=== PATIENT | male | born 1945 | race African-American/Black ===

== ENCOUNTER 2022-08-15 11:33 | Emergency (ER) | payer OTHER ==
[~2022-08-15] VITALS: Ht 190.5 cm; Wt 113.0 kg
[2022-08-15] MEDS ORDERED: cloNIDine HCL 0.1 MG TAB PO ONE (12:30)
[2022-08-15 13:09] LABS: Basophils # (auto) 0.1 10 ^3/uL (0-0.2); Basophils % (auto) 0.9 % (0.0-2.0); Eosinophils # (auto) 0.1 10 ^3/uL (0-0.8); Eosinophils % (auto) 2.3 % (0.0-7.0); Hemoglobin 16.3 g/dL (13.5-17.5); Lymphocytes % (auto) 17.2 % (10.0-50.0); Mean Corpuscular Hemoglobin 26.9 pg (28.0-32.0); Mean Corpuscular Hgb Conc. 32.5 g/dL (32.0-36.0); Mean Corpuscular Volume 82.7 fL (80.0-100.0); Monocytes # (auto) 0.7 10 ^3/uL (0-1.3); Monocytes % (auto) 11.7 % (0.0-12.0); Neutrophils # (auto) 4.1 10 ^3/uL (1.6-8.6); Neutrophils % (auto) 67.9 % (37.0-80.0); Nucleated Red Blood Cells % 0.3 %; Red Blood Cells 6.04 10^6/uL (4.5-5.90); Red Cell Distribution Width 14.8 % (11.8-14.3)
[2022-08-15 13:12] LABS: Albumin 3.8 g/dL (3.4-5.0); Calcium 9.3 mg/dL (8.5-10.1)
[2022-08-15 13:16] LABS: BUN/Creatinine Ratio 12.3; Bilirubin, Total 0.4 mg/dL (0.2-1.0); Total Protein 7.7 g/dL (6.4-8.2)
[2022-08-15] MEDS ORDERED: LOSARTAN POTASSIUM 50 MG TAB PO ONE (14:15)
[2022-08-15] MEDS ORDERED: OLME40TA26 PO (14:53)
[2022-08-15 16:04] VITALS: BP 157/91
== END 2022-08-15 16:05 | disposition home or self-care (01) ==
LOC: ER 11:33
DX: R04.0 Epistaxis (principal); I10 Essential (primary) hypertension; J44.9 Chronic obstructive pulmonary disease, unspecified; Z79.899 Other long term (current) drug therapy
CPT/HCPCS: 30901; 36415; 80053; 84484; 85025; 93005

== ENCOUNTER 2023-07-05 17:45 | Inpatient (IN) | payer MEDICARE, OTHER ==
[~2023-07-05] VITALS: Ht 188 cm; Wt 116.1 kg
[~2023-07-05 17:45] MED LIST: OLME40TA78 PO
[2023-07-05 18:52] LABS: Alanine Aminotransferase 17 U/L (7-40); Albumin 4.3 g/dL (3.2-4.8); Alkaline Phosphatase 77 U/L (46-116); Anion Gap 6 (5-15); Aspartate Aminotransferase 12 U/L (13-40); BUN/Creatinine Ratio 11.3 (10.0-20.0); Basophils # (auto) 0 10 ^3/uL (0-0.2); Basophils % (auto) 0.5 % (0.0-2.0); Bilirubin, Total 0.4 mg/dL (0.2-1.0); Blood Urea Nitrogen 12 mg/dL (9-23); Calcium 9.3 mg/dL (8.7-10.4); Carbon Dioxide 28 mmol/L (20-30); Chloride 102 mmol/L (98-107); Eosinophils # (auto) 0.1 10 ^3/uL (0-0.8); Eosinophils % (auto) 1.2 % (0.0-7.0); Glucose 144 mg/dL (74-106); Hematocrit 43.9 % (41.0-53.0); Hemoglobin 14.4 g/dL (13.5-17.5); Lymphocytes # (auto) 0.8 10 ^3/uL (0.4-5.4); Lymphocytes % (auto) 13.4 % (10.0-50.0); Mean Corpuscular Hgb Conc. 32.9 g/dL (32.0-36.0); Mean Corpuscular Volume 82.1 fL (80.0-100.0); Monocytes # (auto) 0.5 10 ^3/uL (0-1.3); Monocytes % (auto) 7.6 % (0.0-12.0); Neutrophils # (auto) 4.8 10 ^3/uL (1.6-8.6); Neutrophils % (auto) 77.3 % (37.0-80.0); Nucleated Red Blood Cells % 0.1 %; Potassium 3.9 mmol/L (3.5-5.1); Red Blood Cells 5.35 10^6/uL (4.5-5.90); Red Cell Distribution Width 14.5 % (11.8-14.3); Sodium 136 mmol/L (136-145); Total Protein 7.1 g/dL (5.7-8.2); White Blood Cell 6.2 10^3/uL (4.4-10.8)
[2023-07-05 19:51] LABS: INR 1.02 (0.9-1.15); Partial Thromboplastin Time 30.3 SEC (24.5-34.5); Prothrombin Time 10.7 sec (9.3-11.8)
[2023-07-05] MEDS ORDERED: NITROGLYCERIN 0.4 MG SL TAB SL PRN (21:30)
[2023-07-05] MEDS ORDERED: ONDANSETRON HCL 4 MG/2 ML VIAL IV PRN (21:30)
[2023-07-05] MEDS ORDERED: hydrALAZINE HCL 20 MG/ML VL IV PRN (21:30)
[2023-07-05] MEDS ORDERED: MORPHINE SULFATE INJ 2 MG/ml SYRG IV PRN (21:30)
[2023-07-05] MEDS ORDERED: PANTOPRAZOLE 80 MG in SODIUM CHL 0.9% 100 ML IV ONE (21:30)
[2023-07-05] MEDS: PANTOPRAZOLE 40mg/50ML NS AE 50 ML IV SCH ×2 (22:36→23:06)
[2023-07-05] MEDS: SODIUM CHLORIDE 0.9% 1,000 ML IV SCH (23:07)
[2023-07-05 23:50] VITALS: PULSE 86; RESP 22; O2SAT 95
[2023-07-06 05:17] LABS: Basophils # (auto) 0 10 ^3/uL (0-0.2); Basophils % (auto) 0.5 % (0.0-2.0); Eosinophils # (auto) 0.1 10 ^3/uL (0-0.8); Eosinophils % (auto) 1.3 % (0.0-7.0); Hematocrit 38.6 % (41.0-53.0); Hemoglobin 12.8 g/dL (13.5-17.5); Lymphocytes # (auto) 1.2 10 ^3/uL (0.4-5.4); Lymphocytes % (auto) 17.9 % (10.0-50.0); Mean Corpuscular Hemoglobin 27.1 pg (28.0-32.0); Mean Corpuscular Hgb Conc. 33.1 g/dL (32.0-36.0); Mean Corpuscular Volume 81.8 fL (80.0-100.0); Monocytes # (auto) 0.6 10 ^3/uL (0-1.3); Monocytes % (auto) 8.5 % (0.0-12.0); Neutrophils # (auto) 4.8 10 ^3/uL (1.6-8.6); Neutrophils % (auto) 71.8 % (37.0-80.0); Red Blood Cells 4.72 10^6/uL (4.5-5.90); Red Cell Distribution Width 14.6 % (11.8-14.3); White Blood Cell 6.6 10^3/uL (4.4-10.8)
[2023-07-06] MEDS: PANTOPRAZOLE 40mg/50ML NS AE 50 ML IV SCH ×4 (07:38→22:09)
[2023-07-06 07:49] VITALS: PULSE 86; RESP 20
[2023-07-06 11:35] VITALS: PULSE 90; RESP 18; O2SAT 94
[2023-07-06] MEDS: SODIUM CHLORIDE 0.9% 1,000 ML IV SCH (11:50)
[2023-07-06 14:17] LABS: Urine Bacteria NONE SEEN /hpf (None Seen); Urine Blood Negative /uL (Negative); Urine Clarity Clear (Clear); Urine Color Yellow (Yellow); Urine Protein, UAD Negative (Negative); Urine Specific Gravity 1.022 (1.001-1.035); Urine Urobilinogen Normal (Negative); Urine WBC 1 /hpf (0 - 3); Urine pH 6.5 (5.0-8.0)
[2023-07-06 15:10] VITALS: BP 134/86; PULSE 98; RESP 17; TEMP 98.6; O2SAT 94
[2023-07-06 16:39] VITALS: BP 130/81; PULSE 90; RESP 18; TEMP 98.7; O2SAT 96
[2023-07-06] MEDS ORDERED: HYDR12.59 PO (16:47)
[2023-07-06 20:00] VITALS: BP 116/76; PULSE 119; PULSE 97; RESP 18; O2SAT 94
[2023-07-06] MEDS: MORPHINE SULFATE INJ 2 MG/ml SYRG IV PRN (20:27)
[2023-07-06 22:00] VITALS: BP 126/78; PULSE 84; RESP 16; TEMP 98.2; O2SAT 94
[2023-07-07] MEDS: SODIUM CHLORIDE 0.9% 1,000 ML IV SCH (00:10)
[2023-07-07] MEDS: PANTOPRAZOLE 40mg/50ML NS AE 50 ML IV SCH ×2 (03:20→08:34)
[2023-07-07 06:12] LABS: Chloride 105 mmol/L (98-107); Potassium 4.1 mmol/L (3.5-5.1); Sodium 137 mmol/L (136-145)
[2023-07-07 06:13] LABS: Anion Gap 2 (5-15); Calcium 8.5 mg/dL (8.7-10.4); Carbon Dioxide 30 mmol/L (20-30)
[2023-07-07 06:14] LABS: Basophils # (auto) 0 10 ^3/uL (0-0.2); Basophils % (auto) 0.4 % (0.0-2.0); Eosinophils # (auto) 0.1 10 ^3/uL (0-0.8); Eosinophils % (auto) 1.8 % (0.0-7.0); Hematocrit 33.2 % (41.0-53.0); Lymphocytes # (auto) 1.3 10 ^3/uL (0.4-5.4); Lymphocytes % (auto) 20.1 % (10.0-50.0); Mean Corpuscular Hemoglobin 27.2 pg (28.0-32.0); Mean Corpuscular Hgb Conc. 33.1 g/dL (32.0-36.0); Mean Corpuscular Volume 82.1 fL (80.0-100.0); Monocytes # (auto) 0.6 10 ^3/uL (0-1.3); Monocytes % (auto) 9.1 % (0.0-12.0); Neutrophils # (auto) 4.4 10 ^3/uL (1.6-8.6); Neutrophils % (auto) 68.6 % (37.0-80.0); Red Blood Cells 4.04 10^6/uL (4.5-5.90); Red Cell Distribution Width 14.6 % (11.8-14.3); White Blood Cell 6.4 10^3/uL (4.4-10.8)
[2023-07-07 06:18] LABS: BUN/Creatinine Ratio 7.1 (10.0-20.0); Blood Urea Nitrogen 7 mg/dL (9-23); Glucose 116 mg/dL (74-106)
[2023-07-07 08:00] VITALS: BP 113/74; PULSE 80; PULSE 86; PULSE 87; RESP 18; O2SAT 98
[2023-07-07 10:09] VITALS: BP 113/74; PULSE 87; RESP 18; TEMP 98.9; O2SAT 94
[2023-07-07 12:30] VITALS: BP 121/75; PULSE 84; RESP 18; TEMP 98.9; O2SAT 94
[2023-07-07] MEDS: MORPHINE SULFATE INJ 2 MG/ml SYRG IV PRN (14:53)
[2023-07-07 17:07] VITALS: BP 142/82; PULSE 74; RESP 18; TEMP 98; O2SAT 93
[2023-07-07 20:00] VITALS: BP 141/84; PULSE 77; PULSE 87; PULSE 93; RESP 18; TEMP 98; O2SAT 96
[2023-07-07 22:00] VITALS: BP 141/84; PULSE 87; RESP 18; TEMP 98; O2SAT 96
[2023-07-07] MEDS: PANTOPRAZOLE 40 MG/10 ML VIAL INJ IV SCH (22:28)
[2023-07-07] MEDS ORDERED: POLYETHYLENE GLYCOL 17 GM PWDR PO ONE (22:30)
[2023-07-08] VITALS (7 sets, daily range): BP systolic 117–135; BP diastolic 68–85; PULSE 74–95; RESP 18–19; TEMP 97.8–98.4; O2SAT 92–96
[2023-07-08 06:53] LABS: Basophils # (auto) 0 10 ^3/uL (0-0.2); Lymphocytes # (auto) 1.3 10 ^3/uL (0.4-5.4); Mean Corpuscular Hemoglobin 26.8 pg (28.0-32.0)
[2023-07-08 06:56] LABS: Basophils % (auto) 0.6 % (0.0-2.0); Eosinophils # (auto) 0.2 10 ^3/uL (0-0.8); Eosinophils % (auto) 2.4 % (0.0-7.0); Hematocrit 33.7 % (41.0-53.0); Lymphocytes % (auto) 20.7 % (10.0-50.0); Mean Corpuscular Hgb Conc. 32.6 g/dL (32.0-36.0); Mean Corpuscular Volume 82.3 fL (80.0-100.0); Monocytes # (auto) 0.7 10 ^3/uL (0-1.3); Monocytes % (auto) 10.2 % (0.0-12.0); Neutrophils # (auto) 4.2 10 ^3/uL (1.6-8.6); Neutrophils % (auto) 66.1 % (37.0-80.0); Red Cell Distribution Width 14.7 % (11.8-14.3); White Blood Cell 6.4 10^3/uL (4.4-10.8)
[2023-07-08 07:02] LABS: Anion Gap 6 (5-15); Carbon Dioxide 27 mmol/L (20-30); Chloride 107 mmol/L (98-107); Sodium 140 mmol/L (136-145)
[2023-07-08 07:04] LABS: Calcium 8.8 mg/dL (8.5-10.1)
[2023-07-08 07:06] LABS: PSA Free 0.24 ng/mL; Prostate Specific Antigen 1.2 ng/mL (0.0-4.0)
[2023-07-08 07:08] LABS: BUN/Creatinine Ratio 7.8 (10.0-20.0); Blood Urea Nitrogen 7 mg/dL (9-23); Glucose 112 mg/dL (74-106)
[2023-07-08] MEDS: PANTOPRAZOLE 40 MG/10 ML VIAL INJ IV SCH ×2 (09:25→21:38)
[2023-07-08] MEDS ORDERED: GOLYTELY 4L KIT PO ONE (11:00)
[2023-07-09] VITALS (7 sets, daily range): BP systolic 110–139; BP diastolic 57–87; PULSE 75–98; RESP 12–20; TEMP 97.3–98.7; O2SAT 93–99
[2023-07-09] MEDS ORDERED: POLYETHYLENE GLYCOL 17 GM PWDR PO ONE (06:00)
[2023-07-09] MEDS ORDERED: GOLYTELY 4L KIT PO ONE (06:00)
[2023-07-09 07:03] LABS: Chloride 108 mmol/L (98-107); Potassium 3.8 mmol/L (3.5-5.1); Sodium 142 mmol/L (136-145)
[2023-07-09 07:04] LABS: Anion Gap 7 (5-15); Basophils # (auto) 0 10 ^3/uL (0-0.2); Basophils % (auto) 0.3 % (0.0-2.0); Calcium 8.5 mg/dL (8.5-10.1); Carbon Dioxide 27 mmol/L (20-30); Eosinophils # (auto) 0.2 10 ^3/uL (0-0.8); Eosinophils % (auto) 2.2 % (0.0-7.0); Hematocrit 29.5 % (41.0-53.0); Hemoglobin 9.7 g/dL (13.5-17.5); Lymphocytes % (auto) 13.4 % (10.0-50.0); Mean Corpuscular Volume 81.9 fL (80.0-100.0); Monocytes # (auto) 0.6 10 ^3/uL (0-1.3); Monocytes % (auto) 8.1 % (0.0-12.0); Neutrophils # (auto) 5.6 10 ^3/uL (1.6-8.6); Nucleated Red Blood Cells % 0.1 %; Red Blood Cells 3.61 10^6/uL (4.5-5.90); Red Cell Distribution Width 14.1 % (11.8-14.3); White Blood Cell 7.4 10^3/uL (4.4-10.8)
[2023-07-09 07:09] LABS: BUN/Creatinine Ratio 8.7 (10.0-20.0); Blood Urea Nitrogen 9 mg/dL (9-23); Glucose 141 mg/dL (74-106)
[2023-07-09 07:27] LABS: Magnesium 1.8 mg/dL (1.6-2.6)
[2023-07-09] MEDS ORDERED: MIDAZOLAM HCL 5 MG/ML-1ML VIAL ONE (08:22)
[2023-07-09] MEDS ORDERED: diphenhdrAMINE HCL 50 MG/1 ML VL ONE (08:22)
[2023-07-09] MEDS ORDERED: fentaNYL CITRATE 100 MCG/2 ML VL ONE (08:23)
[2023-07-09] MEDS ORDERED: SIMETHICONE 40 MG/0.6 ML ORAL DROP ONE (08:25)
[2023-07-09] MEDS: PANTOPRAZOLE 40 MG/10 ML VIAL INJ IV SCH ×2 (09:28→22:32)
[2023-07-09] MEDS ORDERED: PROPOFOL 10 MG/ML 20 ML IV ONE ×2 (14:48)
[2023-07-09] MEDS ORDERED: LIDOCAINE 2% (LOCAL ANESTH.) PF 5ml SDV ONE (14:48)
[2023-07-10 05:08] VITALS: BP 118/64; PULSE 96; RESP 20; TEMP 98.5; O2SAT 91
[2023-07-10 08:00] VITALS: BP 122/80; PULSE 83; PULSE 85; RESP 16; TEMP 98.1; O2SAT 94
[2023-07-10 09:00] VITALS: BP 122/80; PULSE 85; RESP 16; TEMP 98.1; O2SAT 94
[2023-07-10] MEDS: PANTOPRAZOLE 40 MG/10 ML VIAL INJ IV SCH (09:40)
[2023-07-10 11:52] VITALS: BP 122/80; PULSE 85; RESP 16; TEMP 98.1; O2SAT 94
[2023-07-10 13:02] VITALS: BP 136/78; PULSE 90; RESP 14; TEMP 97.8; O2SAT 95
== END 2023-07-10 13:05 | disposition home or self-care (01) | DRG 378 ==
LOC: ER 17:45 → TELE 21:29 → TELE-CENTR 07-06 15:03
PROVIDERS: ADMIT Nurse Practitioner; ATTEND Internal Medicine Geriatric Medicine
PROC: 0DJD8ZZ Inspection of Lower Intestinal Tract, Via Natural or Artificial Opening Endoscopic (ICD-10-PCS; principal; 2023-07-09 14:52)
DX: K57.31 Diverticulosis of large intestine without perforation or abscess with bleeding (principal); D62 Acute posthemorrhagic anemia; I10 Essential (primary) hypertension; J44.9 Chronic obstructive pulmonary disease, unspecified; E66.9 Obesity, unspecified; Z68.32 Body mass index [BMI] 32.0-32.9, adult; Z82.49 Family history of ischemic heart disease and other diseases of the circulatory system
CPT/HCPCS: 36415; 71045; 74176; 80048; 80053; 81001; 82270; 83735; 84154; 85025; 85610; 85730; 93005; C9113; G0378; J2001; J2250; J2704